=== PATIENT | male | born 1970 | race Caucasian/White ===

== ENCOUNTER 2018-06-23 11:49 | Emergency (ER) | payer BC ==
[~2018-06-23] VITALS: Ht 172.7 cm; Wt 86.0 kg
[2018-06-23] MEDS ORDERED: ondansetron/PF 4mg/2ml inj IV ONE (12:30)
[2018-06-23] MEDS ORDERED: morphine 4 MG/ML inj SYRINge IV ONE ×2 (12:30→13:55)
[2018-06-23] MEDS ORDERED: normal saline 1000ML IV soln IVB ONE (12:30)
[2018-06-23] MEDS ORDERED: iohexol 300mg/ml 100ml inj. ONE (12:35)
[2018-06-23] MEDS ORDERED: OXYC-145 PO (14:12)
[2018-06-23] MEDS ORDERED: LEVO500T2 PO (14:13)
[2018-06-23] MEDS ORDERED: ONDA4TAB12 PO (15:34)
[2018-06-23] MEDS ORDERED: HYDROcodone/acetaminophen 10/325mg tab PO ONE (16:50)
[2018-06-23 16:51] VITALS: BP 127/75
[2018-07-03] MEDS ORDERED: IBUP-1984 PO (14:45)
[2018-07-03] MEDS ORDERED: BUDE10.2 INH (14:45)
[2018-07-03] MEDS ORDERED: CETI-102 PO (14:45)
[2018-07-03] MEDS ORDERED: HYDR-569 PO (14:45)
[2018-07-03] MEDS ORDERED: FLUT16SP2 BOTHNARES (14:45)
[2018-07-03] MEDS ORDERED: FAMO-128 PO (14:45)
[2018-07-03] MEDS ORDERED: ITRA100C5 PO (14:45)
[2018-07-03] MEDS ORDERED: ASPI-1265 PO (14:45)
[2018-07-03] MEDS ORDERED: ACET-812 PO (14:45)
[2018-07-03] MEDS ORDERED: ACET-2615 PO (14:45)
[2018-07-03] MEDS ORDERED: ALBU18HF2 IH (14:45)
== END 2018-06-23 17:06 | disposition home or self-care (01) ==
LOC: ER 11:50
DX: S82.841A Displaced bimalleolar fracture of right lower leg, initial encounter for closed fracture (principal); S22.42XA Multiple fractures of ribs, left side, initial encounter for closed fracture; S82.64XA Nondisplaced fracture of lateral malleolus of right fibula, initial encounter for closed fracture; S82.54XA Nondisplaced fracture of medial malleolus of right tibia, initial encounter for closed fracture; S42.142A Displaced fracture of glenoid cavity of scapula, left shoulder, initial encounter for closed fracture; S90.01XA Contusion of right ankle, initial encounter; Z88.1 Allergy status to other antibiotic agents; Z79.899 Other long term (current) drug therapy; V19.88XA Pedal cyclist (driver) (passenger) injured in other specified transport accidents, initial encounter; Y93.55 Activity, bike riding; Y92.413 State road as the place of occurrence of the external cause; Y99.9 Unspecified external cause status
CPT/HCPCS: 29515; 71100; 71250; 73590; 73610; 74177; 96374; 96375; 96376; 99284; A4565; A6255; A6449; J2270; J2405; J7030; Q9967; 96361

== ENCOUNTER 2018-07-05 10:53 | Day surgery (SDC) | payer BC ==
[2018-07-03 12:28] LABS: BASOPHILS # (AUTO) 0.1 X10'3 (0-0.2); BASOPHILS % (AUTO) 0.8 % (0-1); EOSINOPHILS # (AUTO) 0.2 X10'3 (0-0.9); EOSINOPHILS % (AUTO) 2.3 % (0-6); LYMPHOCYTES # (AUTO) 1.5 X10'3 (1.1-4.8); LYMPHOCYTES % (AUTO) 20.8 % (21-51); MEAN CORPUSCULAR VOLUME 94.3 FL (78-98); MEAN PLATELET VOLUME 9.1 FL (7.4-10.4); MONOCYTES # (AUTO) 0.5 X10'3 (0-0.9); MONOCYTES % (AUTO) 6.8 % (2-12); NEUTROPHILS % (AUTO) 69.3 % (42-75); PRE OP HEMATOCRIT 46.7 % (42.0-52.0); PRE OP HEMOGLOBIN 15.9 g/dL (14.0-17.9); PRE OP PLATELET COUNT 221 X10'3 (140-440); RED BLOOD COUNT 4.95 X10'6 (4.70-6.10); RED CELL DISTRIBUTION WIDTH 12.8 % (11.5-14.5)
[2018-07-03 12:43] LABS: ALKALINE PHOSPHATASE 86 IU/L (46-116); BLOOD UREA NITROGEN 18 MG/DL (7-18); BUN/CREATININE RATIO 21.4 (5.4-32.0); CALCIUM 9.1 MG/DL (8.5-10.1); CHLORIDE 104 MMOL/L (99-107); CREATININE 0.84 MG/DL (0.60-1.10); PRE OP ALT 42 U/L (30-65); PRE OP ANION GAP 8 (8-16); PRE OP AST 21 U/L (10-37); PRE OP BILIRUB, TOTAL 0.7 MG/DL (0.0-1.0); PRE OP GLUCOSE 99 MG/DL (70-104); PRE OP POTASSIUM 4.3 MMOL/L (3.4-5.1); PRE OP SODIUM 140 MMOL/L (135-145); TOTAL CARBON DIOXIDE 27.6 MMOL/L (24-32); eGFR > 90 ML/MIN
[2018-07-03 12:44] LABS: PRE OP PROTIME 9.9 SECONDS (9.0-12.0)
[2018-07-05] VITALS (12 sets, daily range): BP systolic 110–136; BP diastolic 59–81
[~2018-07-05] VITALS: Ht 172.7 cm; Wt 91.0 kg
[~2018-07-05 10:53] MED LIST: ACET-812 PO; ALBU18HF2 IH; ASPI-1265 PO; BUDE10.2 INH; CETI-102 PO; Cefazolin 2GM/50ML dext iso,osmotic IVPB IV ONE; FAMO-128 PO; FLUT16SP2 BOTHNARES; HYDR-569 PO; IBUP-1984 PO; ITRA100C5 PO; famotidine 20mg tablet PO ONE; ringers solution, lacted 1,000 ML IV SCH
[2018-07-05] MEDS ORDERED: LIDOcaine 1% (10mg/ml) 2ml vial ONE (11:09)
[2018-07-05] MEDS ORDERED: sevoflurane 250ml liquid IH ONE (14:16)
[2018-07-05] MEDS ORDERED: dexamethasone sod phosphate 10mg/ml inj ONE (14:16)
[2018-07-05] MEDS ORDERED: ondansetron/PF 4mg/2ml inj ONE (14:16)
[2018-07-05] MEDS ORDERED: fentaNYL/PF 50MCG/1 ML 2ML syringe ONE ×2 (14:22→14:32)
[2018-07-05] MEDS ORDERED: midazolam 2 mg/2 ml injection ONE (14:23)
[2018-07-05] MEDS ORDERED: propofol inj 20 ML IV ONE (14:24)
[2018-07-05] MEDS ORDERED: ROPIVAcaine 0.5% (5mg/ml) 30ml vial ONE (14:39)
[2018-07-05] MEDS ORDERED: ROPIVAcaine 0.5% (5mg/ml) 30ml vial IJ ONE (14:52)
[2018-07-05] MEDS ORDERED: ringers solution, lacted 1,000 ML IV SCH (15:39)
[2018-07-05] MEDS ORDERED: meperidine/PF 25mg/ml syringe IV PRN ×2 (15:40)
[2018-07-05] MEDS ORDERED: ketorolac trometh. 30mg/ml inj. IV ONE (15:40)
[2018-07-05] MEDS ORDERED: morphine 4 MG/ML inj SYRINge IV PRN ×2 (15:40)
[2018-07-05] MEDS ORDERED: ondansetron/PF 4mg/2ml inj IV PRN (15:40)
[2018-07-05] MEDS ORDERED: acetaminophen 1,000mg/100ml IV 100 ML IV PRN (15:40)
[2018-07-05] MEDS ORDERED: HYDROcodone/acetaminophen 10/325mg tab PO ONE (16:10)
== END 2018-07-05 17:05 | disposition home or self-care (01) ==
LOC: PAS 10:53
PROVIDERS: ATTEND Orthopaedic Surgery Hand Surgery
DX: S82.51XA Displaced fracture of medial malleolus of right tibia, initial encounter for closed fracture (principal); J45.998 Other asthma; K21.9 Gastro-esophageal reflux disease without esophagitis; Z79.1 Long term (current) use of non-steroidal anti-inflammatories (NSAID); Z72.89 Other problems related to lifestyle; Z79.891 Long term (current) use of opiate analgesic; Z79.82 Long term (current) use of aspirin; Z88.1 Allergy status to other antibiotic agents; Z88.8 Allergy status to other drugs, medicaments and biological substances; Z98.890 Other specified postprocedural states; Z79.899 Other long term (current) drug therapy; V29.9XXA Motorcycle rider (driver) (passenger) injured in unspecified traffic accident, initial encounter; Y93.89 Activity, other specified; Y92.89 Other specified places as the place of occurrence of the external cause; Y99.8 Other external cause status
CPT/HCPCS: 27766; 36415; 71046; 80053; 85025; 85610; 85730; 93005; A6222; A6449; C1713; J0690; J1100; J1885; J2175; J2250; J2405; J2704; J2795; J3010; J3490; J7120; A7000